=== PATIENT | female | born 1995 | race Caucasian/White ===

== ENCOUNTER 2020-10-03 09:00 | Observation (INO) | payer BC ==
[2020-10-03] MEDS ORDERED: EPINEPHrine 1 MG/ML AMP ONE ×2 (09:02→09:05)
[2020-10-03] MEDS ORDERED: Dexamethasone 10 MG/ML VIAL ONE (09:02)
[2020-10-03] MEDS ORDERED: Famotidine/PF 20 mg/2ml Vial ONE (09:09)
[2020-10-03 11:04] LABS: Hemoglobin 13.2 g/dL (12.0-16.0); Mean Corpuscular Hemoglobin 27.6 pg (27.0-31.0); Mean Corpuscular Volume 86.1 fL (78.0-98.0); Mean Platelet Volume 7.9 fL (7.4-10.4); Platelet Count 299 thou/uL (130-400); RBC Distribution Width 12.3 % (11.5-14.5); Red Blood Cell (RBC) Count 4.78 mill/uL (4.20-5.40); White Blood Cell (WBC) Count 20.4 thou/uL (4.8-10.8)
[2020-10-03] MEDS ORDERED: Rocuronium Bromide 10 MG/ML (10ML VIAL) ONE (11:07)
[2020-10-03 11:08] LABS: BHCG - Serum Negative (NEGATIVE); Pregs Control Background? CLEAR/WHITE (CLR/WHITE); Pregs Control Bar Appear? YES (CONTROL BAR)
[2020-10-03 11:11] LABS: Prothrombin Time 13.3 sec (12.0-14.7)
[2020-10-03] MEDS ORDERED: Oxymetazoline HCl 0.05% (30 ML BOT) ONE (11:15)
[2020-10-03 11:16] LABS: SARS-CoV-2 NAA Rapid Test Not Detected (NotDetected)
[2020-10-03 11:23] LABS: ALT (SGPT) 8 U/L (8-55); AST (SGOT) 10 U/L (5-34); Albumin 3.8 g/dL (3.5-5.0); Alkaline Phosphatase 97 U/L (40-110); Anion Gap 13 mmol/L (10-20); BUN (Urea Nitrogen) 8 mg/dL (7.0-18.7); Bilirubin, Total 0.2 mg/dL (0.2-1.2); Calc. Creatinine Clearance 0 mL/min (70-130); Calcium 8.4 mg/dL (7.8-10.44); Carbon Dioxide 21 mmol/L (22-29); Chloride 108 mmol/L (98-107); Globulin 3.4 g/dL (2.4-3.5); Glucose 178 mg/dL (70-105); Potassium 3.4 mmol/L (3.5-5.1); Protein, Total 7.2 g/dL (6.0-8.3); Sodium 139 mmol/L (136-145)
--- NOTE | 2020-10-03 11:29 | CON ---
DATE OF CONSULTATION: 10/03/2020 REASON FOR CONSULTATION: Angioedema. HISTORY OF PRESENT ILLNESS: This is a 25-year-old female from [place], who is a aircraft inspector at [employer] , studying Electrical Engineering. Last night around 5:00 p.m., she developed swelling in her facial region, particularly her lips. She states that she develops an angioedema type reaction in different parts of her body every time the weather becomes more humid. In the past in [facility], she has been given some type of medication that I do not recognize. So for at this facility, she has been given Benadryl, Pepcid, steroids, and epinephrine. PAST MEDICAL HISTORY: Otherwise, unremarkable. PAST SURGICAL HISTORY: Negative. ALLERGIES: NONE. SOCIAL HISTORY: Nonsmoker. Does not consume alcohol. Does not use illicit drugs. REVIEW OF SYSTEMS: She is having some mild difficulty talking, but mainly is aggravated by the swelling in her lips. PHYSICAL EXAMINATION: VITAL SIGNS: O2 saturation is around 98% on room air at rest, blood pressure 120/80, and pulse around 100. GENERAL: Other than the facial swelling, she is a healthy-appearing female. HEENT: Remarkable for marketed lip edema. She does not really have much tongue edema that I can see. NECK: No adenopathy or JVD. CHEST: Clear. CARDIAC: S1 and S2. Regular. ABDOMEN: Soft. EXTREMITIES: No edema. LABORATORY DATA: Pending. ASSESSMENT: Angioedema. PLAN: There is really no treatment other than what has been offered. She will be given FFP. She needs to be observed closely and her airway needs to be monitored constantly for the next 24 hours. Job ID: [id number]
[2020-10-03 11:46] LABS: Band 1 % (5-11); Lymphocytes 8 % (21-51); MDiff Complete? YES; Monocytes 3 % (0-10); Neutrophil 88 % (42-75); Platelet Morphology Comment Appears Adequate; RBC Morphology Normal
[2020-10-03] MEDS ORDERED: Loperamide HCl 2 MG CAP PO PRN (12:15)
[2020-10-03] MEDS ORDERED: Sodium Chloride 0.65% Nasal 44 ML BOT EA NARE PRN (12:15)
[2020-10-03] MEDS ORDERED: Calcium Carbonate 500 MG ChewTAB PO PRN (12:15)
[2020-10-03] MEDS ORDERED: Ondansetron ODT 4 MG TAB PO PRN (12:15)
[2020-10-03] MEDS ORDERED: Bisacodyl 10 MG SUPP PR PRN (12:15)
[2020-10-03] MEDS ORDERED: Zolpidem Tartrate 5 MG TAB PO PRN (12:15)
[2020-10-03] MEDS ORDERED: Cepastat Lozenges 1 LOZ PO PRN (12:15)
[2020-10-03] MEDS ORDERED: GUAIFENESIN SF SOLN 200 MG/10 ML UDCUP PO PRN (12:15)
[2020-10-03] MEDS ORDERED: hydrALAZINE 20 MG/ML VIAL SLOW IVP PRN (12:15)
[2020-10-03] MEDS ORDERED: Senokot S 8.6-50 MG TAB PO PRN (12:15)
[2020-10-03] MEDS ORDERED: Acetaminophen 325 MG TAB PO PRN (12:15)
[2020-10-03] MEDS ORDERED: Ondansetron PF 4 MG/2 ML Vial IVP PRN (12:15)
--- NOTE | 2020-10-03 12:17 | PDOC.HHP ---
Hospitalist HPI Angioedema History of Present Illness: 25-year-old female who has history of hereditary angioedema who presented to e mergency room with lip swelling, per patient whenever she gets exposed with the rain she develops allergic reaction to different part of the skin, she also gets angioedema, at this time episode was severe, today she was exposed with the rain and subsequently she started having lip swelling and she was not able to breathe, she was brought to emergency room, she had routine blood test which showed leukocytosis, patient was given epinephrine Benadryl and Solu-Medrol, patient is also receiving FFP, from emergency room ENT and anesthesia was notified, pulmonology was also notified, patient will be admitted to [facility] for close monitoring. Patient reports that she had testing done in [place] regarding recurrent angioedema but she is not sure what the result was. ED Course: Patient has received 2 units of FFP, oxymetazoline nasal spray, Pepcid 20 mg IV, Decadron 10 mg IV push, epinephrine 0.3 mg intramuscularly and IV fluid VITAL SIGNS Zoya Oct 03, 2020 09:04 ANGELIKA Winters Lauren BP: 155/85, Pulse: 110, Resp: 25, Temp: 97.5 (Oral), Pain: 0, O2 sat: 100 on (Room Air), Time: 10/03/2020 09:04. VITAL SIGNS Zoya Oct 03, 2020 10:30 ANGELIKA Estes Ashlee BP: 143/82, Pulse: 95, Resp: 15, Pain: 0, O2 sat: 100 on (Room Air), Time: 10/03/2020 10:30. VITAL SIGNS Zoya Oct 03, 2020 11:04 ANGELIKA Estes Ashlee BP: 139/88, Pulse: 112, Resp: 16, O2 sat: 100 on (Room Air), Time: 10/03/2020 11:04. VITAL SIGNS [facility] Oct 03, 2020 11:15 ANGELIKA Estes Ashlee BP: 144/81, Pulse: 120, Resp: 18, O2 sat: 100 on (Room Air), Time: 10/03/2020 11:15. VITAL SIGNS Zoya Oct 03, 2020 11:25 ANGELIKA Estes Ashlee BP: 144/81, Pulse: 102, Resp: 17, Temp: 98.8 (Oral), Pain: 0, O2 sat: 100 on (Room Air), Time: 10/03/2020 11:25. VITAL SIGNS [facility] Oct 03, 2020 11:40 ANGELIKA Estes Ashlee BP: 146/88, Pulse: 111, Resp: 17, Temp: 98.9 (Oral), Pain: 0, O2 sat: 100 on (Room Air), Time: 10/03/2020 11:40. VITAL SIGNS [facility] Oct 03, 2020 11:50 ANGELIKA Estes Ashlee BP: 148/89, Pulse: 100, Resp: 16, Temp: 98.9 (Oral), Pain: 0, O2 sat: 100 on (Room Air), Time: 10/03/2020 11:50. Allergies/Adverse Reactions: Allergy/AdvReac Type Severity Reaction Status Date / Time No Known Allergies Allergy Unverified 10/03/20 12:19 Home Medications: Medication Instructions Recorded Confirmed Type No Known 10/03/20 10/03/20 History Past History: Past medical history Hereditary angioedema Past surgical history Reviewed and negative Past psychiatric history Reviewed and negative Allergy No known drug allergy Social history no smoking no alcohol Family history Positive for similar problem to her mother and her grandfather Hospitalist DIANA FERNANDEZ ENT: reports: mouth swelling. denies: ear pain, ear discharge, nose pain, nose discharge, nose congestion, mouth pain, throat pain, throat swelling, other Respiratory: denies: cough, dry, shortness of breath, hemoptysis, SOB with excertion, pleuritic pain, sputum, wheezing, other Cardiovascular: denies: chest pain, palpitations, orthopnea, paroxysmal noc. dyspnea, edema, light headedness, other Gastrointestinal: denies: nausea, vomiting, abdominal pain, diarrhea, constipation, melena, hematochezia, other Genitourinary: denies: dysuria, frequency, incontinence, hematuria, retention, other Musculoskeletal: denies: neck pain, shoulder pain, arm pain, back pain, hand pain, leg pain, foot pain, other Skin: denies: rash, lesions, dung, bruising, other Hospitalist Exam General Appearance: NAD, awake alert Eye: PERRL, anicteric sclera ENT: normocephalic atraumatic, no oropharyngeal lesions Neck: supple, symmetric, no JVD, no thyromegaly Neck - other findings: Angioedema of the lip Heart: RRR, no murmur, no gallops, no rubs Respiratory: no wheezes, no rales, no ronchi Gastrointestinal: soft, non-tender, non-distended, normal bowel sounds Extremities: no cyanosis, no clubbing, no edema Skin: normal turgor, no lesions Neurological: no focal deficits Musculoskeletal: normal tone, normal strength Psychiatric: normal affect, normal behavior, A&O x 3 Hospitalist Results Result Diagrams: 10/03/20 10:53 10/03/20 10:53 Lab results: Laboratory Last Values WBC 20.4 thou/uL (4.8-10.8) H 10/03/20 10:53 RBC 4.78 mill/uL (4.20-5.40) 10/03/20 10:53 Hgb 13.2 g/dL (12.0-16.0) 10/03/20 10:53 Hct 41.2 % (36.0-47.0) 10/03/20 10:53 MCV 86.1 fL (78.0-98.0) 10/03/20 10:53 MCH 27.6 pg (27.0-31.0) 10/03/20 10:53 MCHC 32.0 g/dL (32.0-36.0) 10/03/20 10:53 RDW 12.3 % (11.5-14.5) 10/03/20 10:53 Plt Count 299 thou/uL (130-400) 10/03/20 10:53 MPV 7.9 fL (7.4-10.4) 10/03/20 10:53 Neutrophils % (Manual) 88 % (42-75) H 10/03/20 10:53 Band Neuts % (Manual) 1 % (5-11) L 10/03/20 10:53 Lymphocytes % (Manual) 8 % (21-51) L 10/03/20 10:53 Monocytes % (Manual) 3 % (0-10) 10/03/20 10:53 Lymphocytes # Not Reportable 10/03/20 10:53 Plt Morphology Comment Appears Adequate 10/03/20 10:53 RBC Morph Comment Normal 10/03/20 10:53 PT 13.3 sec (12.0-14.7) 10/03/20 10:53 INR 1.0 10/03/20 10:53 APTT 23.0 sec (22.9-36.1) 10/03/20 10:53 Sodium 139 mmol/L (136-145) 10/03/20 10:53 Potassium 3.4 mmol/L (3.5-5.1) L 10/03/20 10:53 Chloride 108 mmol/L (98-107) H 10/03/20 10:53 Carbon Dioxide 21 mmol/L (22-29) L 10/03/20 10:53 Anion Gap 13 mmol/L (10-20) 10/03/20 10:53 BUN 8 mg/dL (7.0-18.7) 10/03/20 10:53 Creatinine 0.75 mg/dL (0.6-1.1) 10/03/20 10:53 Estimated GFR (MDRD) Greater than 90 10/03/20 10:53 Glucose 178 mg/dL (70-105) H 10/03/20 10:53 Calcium 8.4 mg/dL (7.8-10.44) 10/03/20 10:53 Total Bilirubin 0.2 mg/dL (0.2-1.2) 10/03/20 10:53 AST 10 U/L (5-34) 10/03/20 10:53 ALT 8 U/L (8-55) 10/03/20 10:53 Alkaline Phosphatase 97 U/L (40-110) 10/03/20 10:53 Serum Total Protein 7.2 g/dL (6.0-8.3) 10/03/20 10:53 Albumin 3.8 g/dL (3.5-5.0) 10/03/20 10:53 Globulin 3.4 g/dL (2.4-3.5) 10/03/20 10:53 Albumin/Globulin Ratio 1.1 g/dL (1.2-2.2) L 10/03/20 10:53 Serum , Qual Negative (NEGATIVE) 10/03/20 10:53 Influenza A RNA INAAT Not Detected (NotDetected) 10/03/20 10:18 Influenza B RNA INAAT Not Detected (NotDetected) 10/03/20 10:18 SARS-CoV-2 Rap RNA(RT-PCR) Not Detected (NotDetected) 10/03/20 10:18 Blood Type B POSITIVE 10/03/20 11:22 Antibody Screen NEGATIVE 10/03/20 10:53 Additional comment: equipment monitor phototypesetting showing sinus rhythm Hospitalist H&P A/P (1) Hereditary angioedema Code(s): D84.1 - DEFECTS IN THE COMPLEMENT SYSTEM Status: Acute Plan: Patient will be closely monitored in IMCU for any deterioration Currently patient is maintaining airway, We will continue with the Solu-Medrol 20 mg IV every 6 hourly along with Benadryl 25 mg IV every 6 hourly and Pepcid 20 mg IV twice daily, We will continue with a gentle IV fluid we will keep her n.p.o. for now until she gets better Swelling perspective to prevent aspiration, we will monitor clinical response Plan of care discussed with the patient and family member DVT prophylaxis SCD GI prophylaxis Pepcid CODE STATUS patient is full code
[2020-10-03] MEDS ORDERED: methylPREDNISolone Sod Succ/PF 125 MG/2 ML VIAL IVP SCH (12:30)
[2020-10-03] MEDS: Sodium Chloride 0.45% 1,000 ML IV SCH (13:19)
[2020-10-03 13:45] VITALS: BMI 30.4
[2020-10-03] MEDS ORDERED: diphenhydrAMINE 25 MG CAP PO SCH (18:00)
--- NOTE | 2020-10-03 18:30 | PRG ---
DATE OF SERVICE: 10/03/2020 The patient was re-evaluated around 05:40 p.m. She has had probably an 85% decrease in her angioedema of her lips after being given FFP. She is begging to be sent home and begging for food. I do think it is reasonable for transfer up to the medical floor now. She can have a diet. She can be discharged 1st thing tomorrow morning if she is doing well. Job ID: [id number]
[2020-10-03] MEDS: diphenhydrAMINE 50 MG/ML VIAL IVP SCH (18:42)
[2020-10-03] MEDS: methylPREDNISolone Sod Succ/PF 125 MG/2 ML VIAL IVP SCH (18:43)
[2020-10-03] MEDS ORDERED: FLU VACC QS2020-21(6MOS UP)/PF 60 MCG/0.5 ML SYRINGE IM ONE (21:00)
[2020-10-03] MEDS ORDERED: Famotidine 20 MG TAB PO SCH (21:00)
[2020-10-03] MEDS: Famotidine/PF 20 mg/2ml Vial SLOW IVP SCH (21:56)
[2020-10-04] MEDS: Sodium Chloride 0.45% 1,000 ML IV SCH (00:06)
[2020-10-04] MEDS: methylPREDNISolone Sod Succ/PF 125 MG/2 ML VIAL IVP SCH ×2 (00:07→05:44)
[2020-10-04] MEDS: diphenhydrAMINE 50 MG/ML VIAL IVP SCH ×2 (00:09→05:44)
[2020-10-04 04:42] VITALS: TEMP 98.5
[2020-10-04] MEDS: Famotidine/PF 20 mg/2ml Vial SLOW IVP SCH (08:46)
--- NOTE | 2020-10-04 09:06 | PRG ---
DATE OF SERVICE: 10/04/2020 SUBJECTIVE: The patient is doing extremely well. Her lip swelling is very minimal at this time, and she says she is about back to baseline. She has no acute complaints since she is begging to go home. OBJECTIVE: VITAL SIGNS: Her temperature is 98.5, pulse 96, blood pressure 93/51, and O2 saturation 99%. HEENT: Unremarkable except for some minor swelling of her upper lip. NECK: No JVD. Voice is normal. LUNGS: Clear. CARDIAC: S1 and S2. Regular. ABDOMEN: Soft. EXTREMITIES: No edema. LABORATORY DATA: No labs were done today. ASSESSMENT: Angioedema. PLAN: She is safe for discharge. I have advised her to follow up with a local tin stacker as she needs some type of preventative treatment. No further pulmonary recommendations. We will sign off. Job ID: [id number]
--- NOTE | 2020-10-04 11:29 | DIS ---
DATE OF ADMISSION: 10/03/2020 DATE OF DISCHARGE: 10/04/2020 DISCHARGE DIAGNOSIS: Angioedema, suspected hereditary component. CONSULTATIONS: Dr. Navi Santillan with Pulmonology Service. PERTINENT LABORATORY AND X-RAY FINDINGS: Potassium 3.4, CO2 of 21. LFTs within normal limits. Serum beta-hCG negative, 10/03/2020. CBC showed a white blood cell count of 20.4, hemoglobin 13, hematocrit 41, and platelet count 299 with 88% neutrophils. COVID-19 PCR not detected 10/03/2020. Influenza A and B, RNA negative, 10/03/2020. HOSPITAL COURSE: The patient initially presented with increased facial and tongue swelling in the context of previous diagnosis of angioedema, suspected hereditary component. The patient was evaluated in the emergency room and initiated on epinephrine, Benadryl, Solu-Medrol, and fresh frozen plasma. The patient was transferred to the intermediate care unit and monitored for clinical decompensation. The patient stabilized with the above treatments in addition to Pepcid. The patient overall clinically stabilized with supportive management, tolerating regular oral intake with stable airway. I have examined the patient at the time of discharge and discussed followup instructions. The patient verbalized understanding and agreement ready for discharge on 10/04/2020. DISCHARGE MEDICATIONS: 1. Pepcid 20 mg p.o. b.i.d. 2. Benadryl 25 mg p.o. q.6 hours p.r.n. FOLLOWUP: The patient instructed to follow up with the local street openings inspector for further complement testing and consideration for monoclonal antibody therapy. CONDITION ON DISCHARGE: Stable. ACTIVITY: Ad elisabeth. DIET: Regular. CODE STATUS: Full. DISPOSITION: To home on 10/04/2020. TIME SPENT: Total time preparing and coordinating discharge is 37 minutes. Job ID: [id number]
== END 2020-10-04 11:21 | disposition home or self-care (01) ==
LOC: ERS 09:00 → EDBD 09:00 → ERHOLD 10:53 → CCU 12:42
PROVIDERS: ADMIT Internal Medicine; ATTEND Internal Medicine
DX: D84.1 Defects in the complement system (principal); Z20.822 Contact with and (suspected) exposure to COVID-19
CPT/HCPCS: 0240U; 36415; 36430; 80053; 84703; 85025; 85610; 85730; 86850; 86900; 86901; 96372; 96374; 96375; 96376; G0378; J0171; J1100; J1200; J2930; P9048; S0028

== ENCOUNTER 2020-12-20 16:53 | Emergency (ER) | payer BC ==
[2020-12-20] MEDS ORDERED: Tranexamic Acid 1,000 MG/10 ML VIAL ONE (18:06)
[2020-12-20] MEDS ORDERED: Dexamethasone 4 mg/ml Vial ONE (18:10)
[2020-12-20] MEDS ORDERED: Tranexamic Acid 1,000 MG in Sodium Chloride 0.9% 250 ML 250 ML IVPB SCH (18:15)
== END 2020-12-20 19:54 | disposition home or self-care (01) ==
LOC: ERS 16:53
DX: D84.1 Defects in the complement system (principal)
CPT/HCPCS: 96374; 96375; J1100